=== PATIENT | female | born 1960 | race Caucasian/White ===

== ENCOUNTER 2018-04-14 16:39 | Emergency (ER) | payer MEDICAID ==
[~2018-04-14] VITALS: Ht 160 cm; Wt 58.4 kg
[~2018-04-14 16:39] MED LIST: [UNRECOGNIZED DRUG - REMARK]; [UNRECOGNIZED DRUG - REMARK]
--- NOTE | 2018-04-14 16:48 | NUR ---
TRANSMISSION SUPERVISOR: NIL WHEN CALLED FOR TRIAGE
--- NOTE | 2018-04-14 17:09 | NUR ---
COSTING MANAGER: NIL WHEN CALLED FOR TRIAGE.
[2018-04-14 17:34] VITALS: BP 112/67
== END 2018-04-14 18:39 | disposition home or self-care (01) ==
LOC: ED 18:33
DX: L03.114 Cellulitis of left upper limb (principal); Z72.9 Problem related to lifestyle, unspecified
CPT/HCPCS: 99283

== ENCOUNTER 2020-06-21 14:34 | Emergency (ER) | payer MEDICAID ==
[~2020-06-21] VITALS: Ht 160 cm; Wt 59.9 kg
--- NOTE | 2020-06-21 14:52 | NUR ---
"i have cellulitis on my L lower leg. i've had it before. i need antibiotics because i just checked into the methadone clinic." FADY NELSON TO BEDSIDE FOR EVALUATION. PT APPEARS TO HAVE ABCESS ON L. CALF. PT REFUSES TO HAVE IT DRAINED. STATES SHE JUST WANTS ANTIBIOTICS FOR IT. VSS. HOOKED UP TO MONITORS. FREDDY.
[2020-06-21 14:53] VITALS: BP 124/65
== END 2020-06-21 15:09 | disposition home or self-care (01) ==
LOC: ED 14:57
DX: L03.116 Cellulitis of left lower limb (principal); L02.416 Cutaneous abscess of left lower limb; M06.9 Rheumatoid arthritis, unspecified
CPT/HCPCS: 99283